=== PATIENT | male | born 1970 | race Caucasian/White ===

== ENCOUNTER 2022-07-29 11:08 | Observation (INO) ==
[2022-07-29] MEDS ORDERED: ASPIRIN 81 MG CHEW ONE (11:26)
[2022-07-29] MEDS ORDERED: HEPARIN (PORCINE) 1000 UNIT/ML 10 ML (CATH LAB USE ONLY) ONE (11:47)
[2022-07-29] MEDS ORDERED: niCARdipine HCL INJ 2.5 MG/ML 10 ML AMP ONE (11:47)
[2022-07-29] MEDS ORDERED: MIDAZOLAM HCL 1 MG/ML 2ML VIAL ONE (11:47)
[2022-07-29] MEDS ORDERED: fentaNYL citrate PF 100 MCG/2 ML VIAL ONE (11:47)
[2022-07-29] MEDS ORDERED: ONDANSETRON INJ 2 MG/ML 2 ML VIAL IV PRN (12:21)
[2022-07-29] MEDS ORDERED: ACETAMINOPHEN 325 MG TAB PO PRN (12:21)
--- NOTE | 2022-07-29 12:21 | Post Anesthesia Assessment ---
Date of Service July 29, 2022 Post Sedation Assessment Vital Signs Temp Pulse Resp BP Pulse Ox O2 Del Method 07/29/22 11:00 98.1 F 64 16 151/105 H 97 Room Air Recovery Score Activity: Moves 4 extremities Respiration: Deep Breath/Cough Circulation: +/-20% PreAnes Value Consciousness: Fully Awake Oxygen Saturation: > 92% On Room Air Post Anesthesia Score: 10 Discharge Sedation Level of Care: Fast Track Phase II Post Sedation Plan On clinical assessment, the patient appears to have tolerated the sedation without complications. Patient is recovering as anticipated. Patient will continue to be monitored by nursing and may be discharged when sedation discharge criteria are met per below protocol. Upon Completions of procedure up to 15 minutes continue every 5 minute vital signs and the P.A.R. score; then discharge to a Phase I or Fast Track to Phase II per the following guidelines: * Discharge Patient to appropriate Phase II area if PAR is 8 or greater or return to pre- procedure baseline. The post - procedure orders will be as directed. * If PAR score is less than 8 or not return to pre-procedure baseline then patient will follow Phase I monitoring till PAR is reached for Phase II. The Phase I may be done in procedure room or may call to secure a Phase I area. * If naloxone or flumazenil are used for reversal, hold in Phase I for continued monitoring from when last reversal dose was given for a minimum of 60 minutes or longer pending the nurse and/or physician discretion of patient condition before discharge to Phase II. Please call the Sedation Physician to re-evaluate and complete post-note for discharge to Phase II area. Do NOT discharge from procedure sedation or Phase 1 until post- sedation evaluation note is complete by procedure /sedation MD Sedation Discharge Instructions to be given to the patient at discharge to home.
--- NOTE | 2022-07-29 12:36 | Cardiac Catheterization ---
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 Cardiac Status Clinical evaluation leading to the procedure CAD Presenation: Positive Stress Test and Unstable angina Diagnostic Physicians Name: Eric Gorman MD Closure Device Recommendations: CABG Cardiac Cath Procedure Full Procedure Date July 29, 2022 Pre-Procedure Diagnosis Pre-Procedure Diagnosis: Positive Stress Test AUC Score AUC Score: 7 Post-Procedure Diagnosis Post-Procedure Diagnosis: Severe CAD and Normal Intracardiac Pressures Procedure(s) Performed Procedure(s) Performed: Coronary Angiography and Left Heart Cath [employer] Professional Eric Gorman MD 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 Remainder of mid/distal vessel without significant disease with FREDRICK II-III flow as extends to apex. Medium D1 without disease. Circumflex -medium caliber, proximal luminal irregularities, 50 to 60% mid stenosis prior to small to medium OM 3. Medium OM1, OM 2 with luminal regularities. RCA -dominant, medium caliber, 30 to 40% mid segment disease, distal luminal irregularities. Faint right to left septal collaterals. LVEDP -6 Arterial Closure: TR band Summary: 1. 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 Normal intracardiac filling pressure Recommendations: Recommend transfer to [facility] for consideration of CABG. Hemodynamics Rest Ao:: 140/91/111 Final Ao: 125/82 LV: 134/6 Recommendations Recommendations: CABG Specimens Specimens: None Radiation Exposure (mGy) 466 Contrast (mls) 35 Procedural Complication(s) None Disposition PCU I attest to the content of the Intraoperative Record and any orders documented therein. Any exceptions are noted below. [facility] Card Cath Procedure Codes Cardiac Catheterization Procedure 1: Cardiovascular Cath Procedures: 53242 Coronaries and LHC (+/-LV) Moderate Sedation Procedure 1: Sedation/Anesthesia: 09186 Mod Sedation by the same physician;Init15 Min Child Age 5 & Up PG Care Time/CCT Total # of Minutes Spent Total Time Spent with Patient: Total time spent is greater than 50% in coordination of care (as documented) at patient's floor/unit and/or counseling patient:
[2022-07-29] MEDS ORDERED: SODIUM CHLORIDE 0.9% 500 ML IV SCH (12:45)
[2022-07-29] MEDS ORDERED: Heparin IV Adult Wt-Based Standard *NO* Bolus Protocol IV SCH (12:45)
--- NOTE | 2022-07-29 12:58 | Discharge Summary ---
Date of Service July 29, 2022 Admission HPI Per Admitting Provider Mr. Frost is a 52-year-old man with a history of hypertension, dyslipidemia and family history of premature CAD who was admitted after high risk abnormal stress test earlier today. Patient endorsed months of exertional chest pain with accelerating symptoms over the last few weeks including rare chest pain at rest. Underwent exercise stress echo today which showed exercise-induced anterior hypokinesis with persistent ST depression/chest discomfort along into recovery. Resting LV function on echo is normal and no significant valvular disease. Admitted for cardiac catheterization. Discharge Data Procedures Performed Operation Date: 07/29/22 11:00 Actual Procedures p Cineradiography w/Routine Exam - Ludin Gorman MD Hospital Course (1) Abnormal stress test: Cardiac catheterization via right radial artery revealed 95+% distal left main disease extending into ostial LAD. Also had 70% focal mid LAD and 50-60% mid circumflex. LV filling pressure normal. With his complex left main disease CABG was recommended and do to accelerating symptoms plus severity of CAD decision made to transfer to [facility] for inpatient cardiac surgery evaluation. Patient chest pain-free, hemodynamically stable while awaiting transfer. Hepa rin infusion started after TR band removal. Coding Level of Care Code 63421 IN/OBS DISCH 30 MIN/LESS Diagnoses Abnormal stress test R94.39
[2022-07-29] MEDS: METOPROLOL TARTRATE 25 MG TAB PO SCH ×2 (13:54→21:59)
[2022-07-29 15:52] LABS: Partial Thromboplastin Ratio 1.2; Partial Thromboplastin Time 32.6 Seconds (21.0-31.0); Prothrombin Time 11.1 Seconds (9.0-12.0)
[2022-07-29] MEDS: HEPARIN SODIUM/DEXTROSE 25,000 UNITS/500 ML BAG IV SCH (16:04)
[2022-07-29] MEDS ORDERED: lisinopril 10 MG TAB PO SCH (21:00)
[2022-07-29 23:45] LABS: Partial Thromboplastin Ratio 2.4
[2022-07-29 23:51] LABS: Partial Thromboplastin Time 66.6 Seconds (21.0-31.0)
[2022-07-30] MEDS: HEPARIN SODIUM/DEXTROSE 25,000 UNITS/500 ML BAG IV SCH (07:38)
[2022-07-30 08:43] LABS: Partial Thromboplastin Ratio 3.2
[2022-07-30 08:54] LABS: Partial Thromboplastin Time 91.4 Seconds (21.0-31.0)
[2022-07-30] MEDS ORDERED: ASPIRIN 81 MG ECTAB PO SCH (09:00)
--- NOTE | 2022-07-30 09:42 | Electrocardiogram Report ---
Test Reason : Blood Pressure : / mmHG Vent. Rate : 065 BPM Atrial Rate : 065 BPM P-R Int : 138 ms QRS Dur : 084 ms QT Int : 420 ms P-R-T Axes : 036 008 036 degrees QTc Int : 436 ms Normal sinus rhythm Normal ECG No previous ECGs available Confirmed by Raffy Alas ([id number]) on 07/30/2022 9:42:51 AM Referred By: Raffy Alas Confirmed By:Raffy Alas
== END 2022-07-30 09:14 | disposition short-term general hospital (02) ==
LOC: 2S → PREINTOOBSV 16:45